=== PATIENT | male | born 1965 | race Asian ===

== ENCOUNTER 2017-06-07 00:13 | Outpatient (CLI) | payer OTHER | END 2017-06-07 01:25 | disposition short-term general hospital (02) | LOC: AMB 00:13 | DX: K65.1 Peritoneal abscess (principal); T88.8XXA Other specified complications of surgical and medical care, not elsewhere classified, initial encounter; T81.4XXA Infection following a procedure, initial encounter | CPT/HCPCS: A0425; A0429 ==